=== PATIENT | female | born 1935 | race Caucasian/White ===

== ENCOUNTER 2022-08-09 19:01 | Emergency (ER) | payer MEDICARE ==
--- NOTE | 2022-08-09 19:43 | ERPHSYRPT ---
- History of Present Illness Time Seen by Provider: 08/09/22 19:43 Source: family Exam Limitations: clinical condition Physician History: Patient brought in by daughter for decreased urination over the weekend. Reports are that she isn't peeing during the day, but is during the night. Patient has advanced dementia. No fever, abd pain, dysuria or increased confusion reported. She did have loose stools on Tuesday and URI sxs for 2 days that subsided on Tuesday. Timing/Duration: gradual onset Activites at Onset: none Quality: other (no pain reported) Onset Location: other (na) Pain Radiation: none Severity of Pain-Max: none Severity of Pain-Current: none Prior abdominal problems: none Sexual intercourse history: non-contributory Modifying Factors: Improves With: nothing Associated Symptoms: denies symptoms Allergies/Adverse Reactions: Penicillins Allergy (Verified 08/09/22 19:31) Home Medications: Atorvastatin Calcium [Lipitor] 40 mg PO DAILY 08/09/22 [History] Donepezil HCl 10 mg [Aricept 10 MG] 10 mg PO DAILY 08/09/22 [History] Isosorbide Mononitrate [Isosorbide Mononitrate ER] 60 mg PO DAILY 08/09/22 [History] Memantine HCl 5 mg [Namenda 5 MG] 10 mg PO DAILY 08/09/22 [History] Omeprazole 20 mg PO DAILY 08/09/22 [History] - Review of Systems Constitutional: No Symptoms Respiratory: No Symptoms Cardiac: No Symptoms Abdominal/Gastrointestinal: No Symptoms Genitourinary Symptoms: Other (decreased urination during the day) Musculoskeletal: No Symptoms Skin: No Symptoms Neurological: No Symptoms All Other Systems: Unable due to dementia (ros per daughter) - Past Medical History Pertinent Past Medical History: Yes Neurological History: Dementia ENT History: No Pertinent History Cardiac History: High Cholesterol Respiratory History: No Pertinent History Endocrine Medical History: No Pertinent History, Diabetes Type II Musculoskeletal History: No Pertinent History GI Medical History: No Pertinent History History: No Pertinent History Psycho-Social History: No Pertinent History Female Reproductive Disorders: No Pertinent History Other Medical History: prolapse bladder - Past Surgical History Past Surgical History: Yes Neuro Surgical History: No Pertinent History Cardiac: Cardiac Catheterization, Cardiac Stent Respiratory: No Pertinent History Gastrointestinal: No Pertinent History Genitourinary: No Pertinent History Musculoskeletal: Orthopedic Surgery Female Surgical History: Hysterectomy Other Surgical History: back surgery - Social History Drug Use: none - Nursing Vital Signs Nursing Vital Signs: Initial Vital Signs Temperature 97.0 F 08/09/22 19:40 Pulse Rate 54 L 08/09/22 19:40 Respiratory Rate 12 08/09/22 19:40 Blood Pressure 169/79 08/09/22 19:40 O2 Sat by Pulse Oximetry 97 08/09/22 19:40 Pain Scale Pain Intensity 0 - Physical Exam General Appearance: no apparent distress, thin Eye Exam: eyes nml inspection Ears, Nose, Throat Exam: normal ENT inspection Neck Exam: normal inspection Respiratory Exam: normal breath sounds, lungs clear, airway intact, No respirato ry distress Cardiovascular Exam: regular rate/rhythm, normal heart sounds, capillary refill <2 sec, No edema Gastrointestinal/Abdomen Exam: soft, tenderness (RLQ, Suprapubic and LLQ TTP on exam), No distention Extremity Exam: normal inspection Neurologic Exam: disoriented (baseline), confusion Skin Exam: normal color, warm, dry, No rash SpO2 Interpretation: normal SpO2: 97 O2 Delivery: Room Air - Course Nursing assessment & vital signs reviewed: Yes - CT Exams Abdomen/Pelvis CT Interpretation: Negative, Tele-radiologist Report Lab/Rad Data: Laboratory Result Diagrams 08/09/22 19:52 08/09/22 19:52 Laboratory Results 08/09/22 08/09/22 08/09/22 Range/Units 19:52 19:52 19:52 WBC 3.5 L (4.0-10.5) x10^3/uL RBC 4.01 L (4.1-5.4) x10^6/uL Hgb 11.7 L (12.0-16.0) g/dL Hct 38.0 (35-47) % MCV 94.8 (78-100) fL MCH 29.2 (26-32) pg MCHC 30.8 L (32-36) g/dL RDW 12.6 (11.5-14.0) % Plt Count 165 (150-450) x10^3/uL MPV 9.1 (7.5-11.0) fL Gran % 50.2 (36.0-66.0) % Immature Gran % (Auto) 0.3 (0.00-0.4) % Nucleat RBC Rel Count 0.0 (0.00-0.1) % Eos # (Auto) 0.07 (0-0.5) x10^3/uL Immature Gran # (Auto) 0.01 (0.00-0.03) x10^3u/L Absolute Lymphs (auto) 1.35 (1.0-4.6) x10^3/uL Absolute Monos (auto) 0.27 (0.0-1.3) x10^3/uL Absolute Nucleated RBC 0.00 (0.00-0.01) x10^3u/L Lymphocytes % 39.1 (24.0-44.0) % Monocytes % 7.8 (0.0-12.0) % Eosinophils % 2.0 (0.00-5.0) % Basophils % 0.6 (0.0-0.4) % Absolute Granulocytes 1.73 (1.4-6.9) x10^3/uL Basophils # 0.02 (0-0.4) x10^3/uL Sodium 141 (137-145) mmol/L Potassium 4.7 (3.5-5.1) mmol/L Chloride 101 (98-107) mmol/L Carbon Dioxide 31 H (22-30) mmol/L Anion Gap 13.5 (5-15) MEQ/L BUN 32 H (7-17) mg/dL Creatinine 0.92 (0.52-1.04) mg/dL Estimated GFR > 60.0 ML/MIN Glucose 149 H (74-106) mg/dL Calcium 9.2 (8.4-10.2) mg/dL Total Bilirubin 0.40 (0.2-1.3) mg/dL AST 25 (14-36) U/L ALT 17 (0-35) U/L Alkaline Phosphatase 140 H (38-126) U/L Serum Total Protein 7.4 (6.3-8.2) g/dL Albumin 4.0 (3.5-5.0) g/dL Urine Color Yellow (Yellow) Urine Appearance Clear (Clear) Urine pH 5.5 (4.6-8.0) Ur Specific [place] 1.020 (1.005-1.030) Urine Protein Trace A (Negative) Urine Glucose (UA) Negative (Negative) mg/dL Urine Ketones Negative (Negative) Urine Blood Negative (Negative) Urine Nitrite Negative (Negative) Urine Bilirubin Negative (Negative) Urine Urobilinogen 1.0 A (0.2) mg/dL Ur Leukocyte Esterase Negative (Negative) U Hyaline Cast (Auto) NONE SEEN (0-2) /LPF Urine Microscopic RBC 0-2 (0-5) /HPF Urine Microscopic WBC 0-2 (0-5) /HPF Ur Epithelial Cells None Seen (None Seen) /HPF Urine Bacteria None Seen (None Seen) /HPF Urine Yeast (Budding) (None Seen) /HPF Urine Culture Reflexed NO (NO) - Progress Progress: unchanged Air Movement: good Progress Note: Labs wnl, UA neg, CT abd/pelvis just showed mild fecal stasis. No PVR. After evaluation I feel her sxs are related to advancing dementia. Encouraged f/u w/ PCP. No additional intervention needed at this time. Blood Culture(s) Obtained: No Antibiotics given: No Counseled pt/family regarding: lab results, diagnosis, need for follow-up, rad results Medical Desision Making - Diagnostic Testing Diagnostic test were ordered, analyzed, and reviewed by me: Yes Radiological Interpretation: Reviewed by me, Teleradiologist Report - Risk of complications Low Risk: Low risk of morbidity from additional dx testing or treatment - Departure Departure Disposition: Home Clinical Impression: Decreased urine volume, Constipation Condition: Good Critical Care Time: No Referrals: SOHEILA RUBIN, DOMENICA [Primary Care Provider] - Follow up/PCP as directed Instructions: Constipation, Adult (DC)
[2022-08-09 20:07] LABS: Absolute Neutrophil Ct (ANC) 1.73 x10^3/uL (1.4-6.9); BASOPHIL % 0.6 % (0.0-0.4); Basophil (Absolute #) 0.02 x10^3/uL (0-0.4); Eosinophil (Absolute #) 0.07 x10^3/uL (0-0.5); Hemoglobin 11.7 g/dL (12.0-16.0); IMMATURE GRAN # 0.01 x10^3u/L (0.00-0.03); IMMATURE GRAN % 0.3 % (0.00-0.4); Lymphocyte (Absolute #) 1.35 x10^3/uL (1.0-4.6); Lymphocytes % 39.1 % (24.0-44.0); Mean Cell Volume 94.8 fL (78-100); Mean Corpuscular Hemoglobin 29.2 pg (26-32); Mean Corpuscular Hgb Concent. 30.8 g/dL (32-36); Mean Platelet Volume 9.1 fL (7.5-11.0); Monocyte (Absolute #) 0.27 x10^3/uL (0.0-1.3); Monocytes % 7.8 % (0.0-12.0); Neutrophil % 50.2 % (36.0-66.0); Platelet Count 165 x10^3/uL (150-450); Red Blood Count 4.01 x10^6/uL (4.1-5.4); Red Cell Distribution Width 12.6 % (11.5-14.0); White Blood Count 3.5 x10^3/uL (4.0-10.5)
[2022-08-09 20:20] LABS: ALKALINE PHOSPHATASE 140 U/L (38-126); ANION GAP 13.5 MEQ/L (5-15); BLOOD UREA NITROGEN 32 mg/dL (7-17); CHLORIDE 101 mmol/L (98-107); Calcium 9.2 mg/dL (8.4-10.2); Carbon Dioxide 31 mmol/L (22-30); Creatinine 1 0.92 mg/dL (0.52-1.04); EST GLOMERULAR FILTRATION RATE > 60.0 ML/MIN; Glucose 149 mg/dL (74-106); Potassium 4.7 mmol/L (3.5-5.1); SGOT/AST 25 U/L (14-36); SGPT/ALT 17 U/L (0-35); SODIUM 141 mmol/L (137-145); Total Protein 7.4 g/dL (6.3-8.2)
[2022-08-09 20:22] LABS: Appearance Clear (Clear); Bacteria None Seen /HPF (None Seen); Bilirubin Negative (Negative); Blood Negative (Negative); Epithelial Cells None Seen /HPF (None Seen); Glucose, Urine Negative (Negative); Hyaline Casts NONE SEEN /LPF (0-2); Ketones Negative (Negative); Leukocyte Esterase Negative (Negative); Nitrite Negative (Negative); Ph 5.5 (4.6-8.0); Protein,Urine Dip Trace (Negative); RBC 0-2 /HPF (0-5); WBC 0-2 /HPF (0-5)
[2022-08-09 20:27] VITALS: BP 183/99
[2022-08-09 20:39] LABS: ADD URINE CULTURE? NO (NO)
[2022-08-09 21:37] VITALS: PULSE 51
[2022-08-09 22:31] VITALS: O2SAT 97
--- NOTE | 2022-08-10 08:42 | XRAY ---
Indication: Abdomen pain. Multiple contiguous axial images obtained through the abdomen and pelvis without contrast. Comparison: None Lung bases demonstrates 1.3 x 1.7 cm posterior right and 1.0 x 2.1 cm posterior left subpleural irregular noncalcified masslike opacities. Tiny left effusion. Heart is not enlarged with scattered coronary calcifications. Noncontrasted stomach and bowel loops appear nonobstructed. Appendix not clearly visualized. Mild diffuse scattered fecal debris and mild sigmoid diverticulosis. A few small left renal cysts, largest 1.5 cm. Previous hysterectomy. No free fluid/air. Remaining liver, gallbladder, pancreas, spleen, adrenal glands, kidneys, ureters, and bladder are unremarkable for noncontrast exam. Moderate/significant scattered vascular calcifications without AAA. Osseous structures intact with osteopenia, mild levorotoscoliosis centered at L4, mild multilevel degenerative spondylosis, 5 mm anterolisthesis of L5 on S1, L4-S1 spinous process fusion hardware, and incompletely visualized old proximal right femur fracture with orthopedic hardware. Impression: 1. Irregular bibasilar subpleural masslike opacities with tiny left effusion as detailed. CT chest with contrast may yield further information. 2. Mild diffuse fecal stasis and sigmoid diverticulosis. 3. Chronic findings including left renal cysts, arteriosclerotic disease, and chronic bony findings.
== END 2022-08-09 22:46 | disposition home or self-care (01) ==
LOC: ED 19:01
DX: R33.9 Retention of urine, unspecified (principal); K59.00 Constipation, unspecified; F03.90 Unspecified dementia, unspecified severity, without behavioral disturbance, psychotic disturbance, mood disturbance, and anxiety; E78.5 Hyperlipidemia, unspecified; E11.9 Type 2 diabetes mellitus without complications; Z79.899 Other long term (current) drug therapy
CPT/HCPCS: 36415; 74176; 80053; 81001; 85025; 87086; 99283

== ENCOUNTER 2022-10-11 19:04 | Emergency (ER) | payer MEDICARE ==
[2022-10-11] MEDS ORDERED: XYLOCAINE 1% HCL 20 ML MDV IJ ONE (19:05)
--- NOTE | 2022-10-11 19:09 | ERPHSYRPT ---
- History of Present Illness Time Seen by Provider: 10/11/22 19:09 Source: patient Exam Limitations: no limitations Physician History: This is an 86-year-old white female has significant dementia and does not communicate and presents to the emergency department with left hand dorsal aspect redness and swelling. Patient also has hyperlipidemia and diabetes. Patient's daughter takes care of her. Patient is allergic to penicillin but has had Rocephin and Keflex in the past, per patient's daughter, without adverse reaction. Patient also has a history of arthritis. Patient has no known history of gout. Patient's daughter was concerned because the area of redness and swelling was initially worsening. Patient did receive Benadryl last night and the redness and swelling is still present there is still warmth but the daughter thinks the swelling has improved. Occurred: days ago (6) Method of Injury: other (No known injury) Severity of Pain-Max: mild Severity of Pain-Current: mild Extremities Pain Location: hand: left (Dorsal aspect redness warmth and swelling) Modifying Factors: Improves With: nothing Associated Symptoms: none Allergies/Adverse Reactions: Penicillins Allergy (Verified 10/11/22 19:20) Home Medications: Atorvastatin Calcium [Lipitor] 40 mg PO HS 08/09/22 [History] Donepezil HCl 10 mg [Aricept 10 MG] 10 mg PO HS 08/09/22 [History] Isosorbide Mononitrate [Isosorbide Mononitrate ER] 60 mg PO DAILY 08/09/22 [History] Memantine HCl 5 mg [Namenda 5 MG] 10 mg PO HS 08/09/22 [History] Mirtazapine 30 mg [Remeron 30 mg] 30 mg PO HS 10/11/22 [History] Hx Tetanus, Diphtheria Vaccination/Date Given: Yes Hx Influenza Vaccination/Date Given: No Hx Pneumococcal Vaccination/Date Given: No Travel Risk - International Travel Have you traveled outside of the country in past 3 weeks: No - Coronavirus Screening Are you exhibiting any of the following symptoms?: No Close contact with a COVID-19 positive Pt in past 14-21 Days: No - Vaccine Status Have you recieved a Covid-19 vaccination: Yes Fashion Merchandiser: [employer] - Review of Systems Constitutional: No Symptoms Eyes: No Symptoms Ears, Nose, & Throat: No Symptoms Respiratory: No Symptoms Cardiac: No Symptoms Abdominal/Gastrointestinal: No Symptoms Genitourinary Symptoms: No Symptoms Musculoskeletal: No Symptoms Skin: Cellulitis (With redness warmth and swelling dorsal aspect left hand and distal wrist dorsally) Neurological: No Symptoms Psychological: No Symptoms Endocrine: No Symptoms Hematologic/Lymphatic: No Symptoms Immunological/Allergic: No Symptoms All Other Systems: Reviewed and Negative - Past Medical History Pertinent Past Medical History: Yes Neurological History: Dementia ENT History: No Pertinent History Cardiac History: High Cholesterol Respiratory History: No Pertinent History Endocrine Medical History: No Pertinent History, Diabetes Type II Musculoskeletal History: No Pertinent History GI Medical History: No Pertinent History History: No Pertinent History Psycho-Social History: No Pertinent History Female Reproductive Disorders: No Pertinent History Other Medical History: prolapse bladder - Past Surgical History Past Surgical History: Yes Neuro Surgical History: No Pertinent History Cardiac: Cardiac Catheterization, Cardiac Stent Respiratory: No Pertinent History Gastrointestinal: No Pertinent History Genitourinary: No Pertinent History Musculoskeletal: Orthopedic Surgery Female Surgical History: Hysterectomy Other Surgical History: back surgery - Social History Smoking Status: Never smoker Exposure to second hand smoke: Yes Drug Use: none Patient Lives Alone: No - Nursing Vital Signs Nursing Vital Signs: Initial Vital Signs Temperature 98.6 F 10/11/22 19:24 Pulse Rate 85 10/11/22 19:24 Respiratory Rate 16 10/11/22 19:24 Blood Pressure 123/64 10/11/22 19:24 O2 Sat by Pulse Oximetry 96 10/11/22 19:24 Pain Scale Pain Intensity 0 - Physical Exam General Appearance: no apparent distress, lethargy (Her current general appearance is typical for her per patient's daughter) Eyes, Ears, Nose, Throat Exam: normal ENT inspection, moist mucous membranes Neck Exam: normal inspection, non-tender, other (Patient chronically has her head and neck leaning forward) Cardiovascular/Respiratory Exam: chest non-tender, normal breath sounds, regular rate/rhythm, heart sounds normal, no respiratory distress Abdominal Exam: non-tender Back Exam: normal inspection, normal range of motion, No CVA tenderness, No vertebral tenderness Shoulder Exam: normal inspection, non-tender, no evidence of injury (Patient is somewhat contracted) Elbow/Forearm Exam: normal inspection, non-tender, no evidence of injury (Patient is somewhat contracted which is chronic for) Wrist Exam: soft tissue tenderness (Mild cellulitis present distal left wrist dorsally) Hand Exam: soft tissue tenderness (Mild cellulitis with swelling dorsal aspect) Mental Status Exam: alert, other (Patient has significant/severe dementia) Skin Exam: other (Cellulitis left hand and wrist dorsally as described above) SpO2 Interpretation: normal O2 Delivery: Room Air - Course Nursing assessment & vital signs reviewed: Yes Ordered Tests: Medication Summary Discontinued Medications Generic Name Dose Route Start Last Admin Trade Name Ricky PRN Reason Stop Dose Admin Ceftriaxone Sodium 1,000 mg 10/11/22 19:54 10/11/22 19:58 Ceftriaxone Sodium 1000 Mg Inj Vial IM 10/11/22 19:55 1,000 mg STAT ONE Administration Ceftriaxone Sodium Confirm 10/11/22 19:56 Ceftriaxone Sodium 1000 Mg Inj Vial Administered 10/11/22 19:57 Dose 1,000 mg .ROUTE .STK-MED ONE - Progress Progress: unchanged Progress Note: 10/11/22 20:25 This patient's medical issue is 1 of low complexity. The level of complexity in the work-up performed is based on review of the patient's past medical history, review of the patient's medication list, review the patient's drug allergy list, history of present illness and physical findings on examination. The patient may have an arthritic flareup, cellulitis or possibly an acute gout flareup. She did not suffer any kind of injury. I do not want to place this patient on steroids or indomethacin. We will provide her with Rocephin 1 g intramuscularly here in the emergency department. Patient's daughter will provide the patient with ibuprofen twice a day for the next 4 to 5 days and Benadryl at night for the next 3-4 nights. Patient will follow-up with her primary care provider on 10/12/2022 in the morning to make arrangements for further evaluation and management. We will provide her a prescription of Keflex and send remotely to her pharmacy. 10/11/22 20:28 Per patient's daughter's report, the patient has had Rocephin and Keflex in the past without adverse reactions. Counseled pt/family regarding: diagnosis, need for follow-up Medical Desision Making - Independent Historian Additional History obtained from: Child (Daughter) - Diagnostic Testing Diagnostic test were ordered, analyzed, and reviewed by me: No - Risk of complications The pt has a mod risk of morbidity or mortality based on: Need for prescription drug management - Departure Departure Disposition: Home Clinical Impression: Cellulitis of left hand, Cellulitis of left wrist Condition: Stable Critical Care Time: No Referrals: SOHEILA RUBIN NP [Primary Care Provider] - Follow up/PCP as directed Additional Instructions: Use Benadryl 25 mg orally at nighttime for the next 3 days. Use 400 mg ibuprofen with food twice a day for the next 4 days. Give the antibiotics as prescribed. Follow-up with primary care provider tomorrow, 10/12/2022, for further evaluation management. Prescriptions: Cephalexin Mh 500 mg [Keflex 500 mg] 500 mg PO TID #21 cap
[2022-10-11 19:49] VITALS: TEMP 98.6
[2022-10-11] MEDS ORDERED: Rocephin 1000 MG INJ IM ONE (19:54)
[2022-10-11] MEDS ORDERED: Rocephin 1000 MG INJ ONE (19:56)
[2022-10-11 20:15] VITALS: BP 150/79; PULSE 67; RESP 18; O2SAT 97
== END 2022-10-11 20:41 | disposition home or self-care (01) ==
LOC: ED 19:04
DX: L03.114 Cellulitis of left upper limb (principal); F03.90 Unspecified dementia, unspecified severity, without behavioral disturbance, psychotic disturbance, mood disturbance, and anxiety; E78.5 Hyperlipidemia, unspecified; E11.9 Type 2 diabetes mellitus without complications; Z79.899 Other long term (current) drug therapy
CPT/HCPCS: 96372; 99282; J0696

== ENCOUNTER 2024-02-22 06:06 | Emergency (ER) | payer MEDICARE ==
--- NOTE | 2024-02-22 06:33 | ERPHSYRPT ---
- History of Present Illness Time Seen by Provider: 02/22/24 06:27 Source: patient Exam Limitations: clinical condition Physician History: Patient is an 88-year-old female DNR with advanced dementia requires 24-hour care presents to our ED via EMS for evaluation of altered mental status, unresponsiveness. Patient's daughter lives with our patient. Patient's daughter reports she awoke to check on our patient and heard nonspecific groans coming from our patient's room. She checked up on our patient and observed her to be drooling from the right side of her mouth. Patient was unarousable. Daughter called 911. Daughter thought patient may have had a stroke. Patient's last known well was 8 PM yesterday. Patient has a history of hypertension hypercholesterolemia dementia. Daughter reports patient fell approximately 2 months ago and fractured her right hip. Patient had the hip pinned. Patient is not on blood thinners. No known trauma. Patient is nonverbal secondary to advanced dementia. Patient has 2 cardiac stents possibly 3. No fever. No nausea no vomiting no diarrhea no rash. Daughter at bedside voices no other complaints or concerns at this time. Portions of this note were created with voice recognition technology. There may be grammatical, spelling, punctuation or sound alike errors Timing/Duration: today Severity: moderate Modifying Factors: Improves With: nothing Associated Symptoms: weakness, other Allergies/Adverse Reactions: Penicillins Allergy (Verified 10/11/22 19:20) Home Medications: Atorvastatin Calcium [Lipitor] 40 mg PO HS 08/09/22 [History] Donepezil HCl 10 mg [Aricept 10 MG] 10 mg PO HS 08/09/22 [History] Isosorbide Mononitrate [Isosorbide Mononitrate ER] 60 mg PO DAILY 08/09/22 [History] Memantine HCl 5 mg [Namenda 5 MG] 10 mg PO HS 08/09/22 [History] Mirtazapine 30 mg [Remeron 30 mg] 30 mg PO HS 10/11/22 [History] Hx Tetanus, Diphtheria Vaccination/Date Given: Yes Hx Influenza Vaccination/Date Given: No Hx Pneumococcal Vaccination/Date Given: No - Review of Systems All Other Systems: Unable due to condition - Past Medical History Pertinent Past Medical History: Yes Neurological History: Dementia ENT History: No Pertinent History Cardiac History: High Cholesterol Respiratory History: No Pertinent History Endocrine Medical History: No Pertinent History, Diabetes Type II Musculoskeletal History: No Pertinent History GI Medical History: No Pertinent History History: No Pertinent History Psycho-Social History: No Pertinent History Female Reproductive Disorders: No Pertinent History Other Medical History: prolapse bladder - Past Surgical History Past Surgical History: Yes Neuro Surgical History: No Pertinent History Cardiac: Cardiac Catheterization, Cardiac Stent Respiratory: No Pertinent History Gastrointestinal: No Pertinent History Genitourinary: No Pertinent History Musculoskeletal: Orthopedic Surgery Female Surgical History: Hysterectomy Other Surgical History: back surgery - Social History Smoking Status: Never smoker Exposure to second hand smoke: Yes Drug Use: none Patient Lives Alone: No - Nursing Vital Signs Nursing Vital Signs: Initial Vital Signs Temperature 96.2 F 02/22/24 06:17 Pulse Rate 80 02/22/24 06:17 Respiratory Rate 29 H 02/22/24 06:17 Blood Pressure 59/39 02/22/24 06:17 O2 Sat by Pulse Oximetry 90 L 02/22/24 06:17 - Physical Exam General Appearance: no apparent distress Eye Exam: PERRL/EOMI, eyes nml inspection Ears, Nose, Throat Exam: normal ENT inspection, pharynx normal, moist mucous membranes Neck Exam: normal inspection, non-tender, supple, full range of motion Respiratory Exam: normal breath sounds, lungs clear, No respiratory distress Cardiovascular Exam: regular rate/rhythm, normal heart sounds, normal peripheral pulses Gastrointestinal/Abdomen Exam: soft, normal bowel sounds, No tenderness, No mass Back Exam: normal inspection, normal range of motion, No CVA tenderness, No vertebral tenderness Extremity Exam: normal inspection, normal range of motion, pelvis stable Neurologic Exam: other (Lethargic, minimally responsive), No motor deficits Skin Exam: normal color, warm, dry, No rash Lymphatic Exam: No adenopathy SpO2 Interpretation: normal O2 Delivery: Nasal Cannula - Course Nursing assessment & vital signs reviewed: Yes EKG Interpreted by Me: RATE (81), Sinus Rhythm, NORMAL AXIS, NORMAL INTERVALS, Left Bundle Branch Block - CT Exams Head CT Interpretation: Tele-radiologist Report (No acute intracranial abnormality. Cerebral atrophy with chronic microvascular ischemic changes) Ordered Tests: Active Orders 24 hr Category Date Time Status Hydraulic Design Engineer STAT Care 02/22/24 06:27 Ordered EKG-ER Only STAT Care 02/22/24 06:26 Ordered IV Insertion STAT Care 02/22/24 06:26 Ordered Pulse Oximetry (ED) STAT Care 02/22/24 06:26 Ordered CHEST 1 VIEW (PORTABLE) Stat Exams 02/22/24 06:12 Ordered HEAD WITHOUT CONTRAST [CT] Stat Exams 02/22/24 06:08 Ordered CBC W DIFF Stat Lab 02/22/24 06:26 Ordered CMP Stat Lab 02/22/24 06:26 Ordered NT PRO BNPII Stat Lab 02/22/24 06:26 Ordered TROPONIN Q4H Lab 02/22/24 06:30 Ordered TROPONIN Q4H Lab 02/22/24 10:30 Ordered TROPONIN Q4H Lab 02/22/24 14:30 Ordered TSH [TSH, 3RD Generation] Stat Lab 02/22/24 07:06 Ordered UA W/RFX UR CULTURE Stat Lab 02/22/24 06:26 Ordered Medication Summary Generic Name Dose Route Start Last Admin Trade Name Freq PRN Reason Stop Dose Admin Sodium Chloride 1,000 mls @ 999 mls/hr 02/22/24 06:26 02/22/24 07:00 Sodium Chloride 0.9% 1000 Ml IV 02/22/24 07:26 999 mls/hr .Q1H1M STA Administration Discontinued Medications Generic Name Dose Route Start Last Admin Trade Name Freq PRN Reason Stop Dose Admin Hydrocortisone Sodium Succinate 100 mg 02/22/24 07:05 Hydrocortisone Sod Succinate 100 Mg/Vial Vial IV 02/22/24 07:06 STAT ONE Sodium Chloride Confirm 02/22/24 06:58 Sodium Chloride 0.9% 1000 Ml Administered 02/22/24 06:59 Dose 1,000 mls @ ud .ROUTE .STK-MED ONE Lab/Rad Data: Laboratory Result Diagrams 02/22/24 06:58 Laboratory Results 02/22/24 Range/Units 06:58 WBC 9.3 (3.98-10.04) x10^3/uL RBC 3.53 L (3.93-5.22) x10^6/uL Hgb 10.7 L (11.2-15.7) g/dL Hct 35.4 (34.1-44.9) % MCV 100.3 H (79.4-94.8) fL MCH 30.3 (25.6-32.2) pg MCHC 30.2 L (32.2-35.5) g/dL RDW 13.2 (11.7-14.4) % Plt Count 195 (182-369) x10^3/uL MPV 9.9 (9.4-12.3) fL Gran % 77.5 H (34.0-71.1) % Immature Gran % (Auto) 0.6 H (0.001-0.429) % Nucleat RBC Rel Count 0.0 (0.00-0.2) % Eos # (Auto) 0.03 L (0.04-0.36) x10^3/uL Immature Gran # (Auto) 0.06 H (0.001-0.031) x10^3u/L Absolute Lymphs (auto) 1.54 (1.18-3.74) x10^3/uL Absolute Monos (auto) 0.45 (0.24-0.86) x10^3/uL Absolute Nucleated RBC 0.00 (0.00-0.012) x10^3u/L Lymphocytes % 16.6 L (19.3-51.7) % Monocytes % 4.8 (4.7-12.5) % Eosinophils % 0.3 L (0.7-5.8) % Basophils % 0.2 (0.1-1.2) % Absolute Granulocytes 7.18 H (1.56-6.13) x10^3/uL Basophils # 0.02 (0.01-0.08) x10^3/uL - Progress Progress: improved Progress Note: Patient is an 88-year-old female with advanced dementia hypertension hypercholesterolemia requires 24-hour care presents to our ED for evaluation of decreased responsiveness. Upon arrival to our ED patient was breathing spontaneously. Glucose was 219. Patient was hypotensive. IV fluids initiated. Patient is now much more arousable. Blood pressure was 59 systolic. After 1 L of IV fluids manual blood pressure was 74 systolic. Patient afebrile. It is currently the change of shift. Lab pending. CT head shows atrophic senile brain. No acute intracranial abnormality. Currently the change of shift. Patient endorsed to incoming physician Dr. Leija who will review the labs and make final disposition. Patient's daughters are at bedside. We would likely be admitting patient to our hospital for further evaluation and treatment. They voiced no other complaints or concerns at this time. Portions of this note were created with voice recognition technology. There may be grammatical, spelling, punctuation or sound alike errors Complexity of problem addressed is moderate acute complicated. Critical care time is 30 to 74 minutes. Complex of data reviewed and analyzed is extensive. Test ordered chest reviewed results analyzed and correlated clinically with history and physical examination. Management discussed with hospitalist. Risk of complication and or risk of morbidity/mortality of patient management is high. Patient requires hospitalization for further evaluation and treatment. Patient's blood pressure is low. Patient currently receiving IV fluids in an attempt to increase blood pressure/MAP. Family at bedside. Family is currently discussing completion of DNR paperwork. No social determinants of health present to impede follow-up. Portions of this note were created with voice recognition technology. There may be grammatical, spelling, punctuation or sound alike errors 02/22/24 07:06 02/22/24 07:13 - Departure Departure Disposition: Observation Clinical Impression: Hypotension, Lethargic, Advanced dementia Condition: Stable Critical Care Time: Yes Critical Care Time(excluding separately billable procedures): Critical 30-74 mins Referrals: SOHEILA RUBIN NP [Primary Care Provider] - Follow up/PCP as directed
--- NOTE | 2024-02-22 06:43 | XRAY ---
CLINICAL HISTORY: stroke protocol COMPARISON: None. TECHNIQUE: Multiple axial images are obtained from the skull base to the vertex without contrast. CT scan was performed according to ALARA (as low as reasonably achievable). FINDINGS: There is cerebral atrophy. The celis-white matter differentiation is preserved. There are scattered periventricular hypodensities as can be seen with chronic microvascular ischemic changes. No evidence of space occupying lesion, hemorrhage, edema, mass effect, midline shift, extra axial collection, or hydrocephalus is noted. Basal cisterns are symmetric and normal in size and configuration. Visualized paranasal sinuses and mastoid air cells are well aerated. Orbital contents are within normal limits. Bony structures are intact. IMPRESSION: 1. No evidence of acute intracranial abnormality is demonstrated. 2. Chronic microvascular ischemic changes. 3. Cerebral atrophy. MRI of the brain with diffusion weighted imaging is suggested for better evaluation if clinically indicated. Electronically Signed by: Blas Obrien MD. (02/22/2024 06:38:40 EST)
[2024-02-22] MEDS: Sodium Chloride 0.9% 1000 ML 1,000 ML IV STA (06:56)
[2024-02-22] MEDS ORDERED: Sodium Chloride 0.9% 1000 ML 1,000 ML ONE (06:58)
[2024-02-22 07:02] LABS: Absolute Neutrophil Ct (ANC) 7.18 x10^3/uL (1.56-6.13); BASOPHIL % 0.2 % (0.1-1.2); Basophil (Absolute #) 0.02 x10^3/uL (0.01-0.08); Eosinophil % 0.3 % (0.7-5.8); Eosinophil (Absolute #) 0.03 x10^3/uL (0.04-0.36); Hematocrit 35.4 % (34.1-44.9); Hemoglobin 10.7 g/dL (11.2-15.7); IMMATURE GRAN # 0.06 x10^3u/L (0.001-0.031); IMMATURE GRAN % 0.6 % (0.001-0.429); Lymphocyte (Absolute #) 1.54 x10^3/uL (1.18-3.74); Lymphocytes % 16.6 % (19.3-51.7); Mean Cell Volume 100.3 fL (79.4-94.8); Mean Corpuscular Hemoglobin 30.3 pg (25.6-32.2); Mean Corpuscular Hgb Concent. 30.2 g/dL (32.2-35.5); Mean Platelet Volume 9.9 fL (9.4-12.3); Monocyte (Absolute #) 0.45 x10^3/uL (0.24-0.86); Monocytes % 4.8 % (4.7-12.5); Neutrophil % 77.5 % (34.0-71.1); Platelet Count 195 x10^3/uL (182-369); Red Blood Count 3.53 x10^6/uL (3.93-5.22); Red Cell Distribution Width 13.2 % (11.7-14.4); White Blood Count 9.3 x10^3/uL (3.98-10.04)
--- NOTE | 2024-02-22 07:03 | XRAY ---
CLINICAL HISTORY: short of breath COMPARISON: None. TECHNIQUE: Radiograph of chest was acquired. FINDINGS: Few suspicious fibrobronchiectatic changes are noted in bilateral upper zones. Small opacities noted in the right lower zone in supradiaphragmatic region. Rest of the lung pascual do not reveal any obvious abnormality. Blunting of both costophrenic angles is noted, likely suggestive of pleural effusion. Cardiomegaly is noted. Aortic knuckle calcification is noted. No acute osseous abnormality. 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 IMPRESSION: 1. Few suspicious fibrobronchiolectatic changes are noted in bilateral upper zones. 2. Small opacity is noted in the right lower zone in supradiaphragmatic region. Plate atelectasis versus consolidation. 3. Cardiomegaly is noted. 4. Blunting of both costophrenic angles is noted, likely suggestive of pleural effusion. CT scan of the chest is suggested for better evaluation if clinically indicated. Electronically Signed by: Blas Obrien MD. (02/22/2024 06:58:38 EST)
[2024-02-22 07:04] VITALS: TEMP 96.2
[2024-02-22] MEDS ORDERED: solu-CORTEF 100MG ONE (07:10)
[2024-02-22] MEDS ORDERED: Sterile H2O 10 ml IJ ONE (07:10)
[2024-02-22] MEDS: solu-CORTEF 100MG IV ONE (07:12)
[2024-02-22 07:36] LABS: ALBUMIN 3.2 g/dL (3.5-5.0); ANION GAP 17.3 MEQ/L (5-15); Calcium 8.6 mg/dL (8.4-10.2); Creatinine 1 0.95 mg/dL (0.52-1.04); EST GLOMERULAR FILTRATION RATE 57.3 ML/MIN; Potassium 4.6 mmol/L (3.5-5.1); Total Protein 5.9 g/dL (6.3-8.2)
[2024-02-22 10:04] VITALS: BP 47/19; PULSE 87; RESP 19; O2SAT 87
== END 2024-02-22 10:50 | disposition expired ==
LOC: ED 06:06
DX: R40.4 Transient alteration of awareness (principal); E78.5 Hyperlipidemia, unspecified; F03.90 Unspecified dementia, unspecified severity, without behavioral disturbance, psychotic disturbance, mood disturbance, and anxiety; I95.9 Hypotension, unspecified
CPT/HCPCS: 36415; 51702; 70450; 71045; 80053; 83880; 84443; 84484; 85025; 93005; 93041; 94760; 96360; 96374; 99285; 99291; J1720